=== PATIENT | male | born 1940 | race Caucasian/White ===

== ENCOUNTER 2019-10-20 17:33 | Inpatient (IN) ==
[2019-10-20] MEDS ORDERED: NS 1,000 ML IV ONE ×2 (18:05→19:18)
--- NOTE | 2019-10-20 18:16 | EKG Report ---
Test Performed on : 10/20/2019 6:05:35 PM Test Reason : PROTOCOL Blood Pressure : / mmHG Vent. Rate : 072 BPM Atrial Rate : 072 BPM P-R Int : 168 ms QRS Dur : 136 ms QT Int : 452 ms P-R-T Axes : 038 077 029 degrees QTc Int : 494 ms Normal sinus rhythm. Right bundle branch block Abnormal ECG When compared with ECG of 08-JUN-2009 12:31, Right bundle branch block is now present Unconfirmed Result
[2019-10-20 18:22] LABS: BASO# 0.13 X1000 (0.0-0.2); BASO% 1.7 % (0.0-0.8); EOS# 0.22 X1000 (0.0-0.7); EOS% 2.8 % (0.0-10.0); HEMATOCRIT 23.5 % (42.0-52.0); HEMOGLOBIN 6.6 g/dL (14.0-18.0); IMM GRAN# 0.01 X1000 (0.0-0.04); IMM GRAN% 0.1 % (0.0-0.5); LYMPH# 1.18 X1000 (1.2-3.4); LYMPH% 15.3 % (20.5-51.1); MCH 21.5 PG (27-31); MCHC 28.1 g/dL (33-37); MCV 76.5 FL (81-99); MONO# 0.77 X1000 (0.11-0.59); MPV 12.1 FL (7.4-10.4); NEUT# 5.42 X1000 (1.4-6.5); NEUT% 70.1 % (42.2-75.2); PLT 253 X1000 (130-400); RBC 3.07 XMIL (4.7-6.1); RDW 19.8 % (11.5-14.5); WBC 7.73 X1000 (4.8-10.8)
[2019-10-20 18:28] LABS: INR 1.06; PROTIME 14.4 Seconds (11.0-16.0)
[2019-10-20 18:30] LABS: OCCULT BLOOD 1 POSITIVE (NEGATIVE)
--- NOTE | 2019-10-20 18:33 | PROVIDER DOCUMENTATION ---
HPI-General Adult - General Chief Complaint: Abnormal Lab[s] Stated Complaint: ABNORMAL LABS Time Seen by Provider: 10/20/19 17:53 Source: patient Allergies/Adverse Reactions: Patient Allergies Allergy/AdvReac Type Severity Reaction Status Date / Time No Known Allergies Allergy Verified 04/23/13 12:23 Home Medications: Home Medication List Medication Instructions Recorded Confirmed Last Taken Type ATORVAstatin [Lipitor] 10 mg PO HS 04/23/13 04/23/13 04/29/13 04:30 History Atenolol 50 mg PO DAILY 04/23/13 04/23/13 04/29/13 04:30 History Hydrocodone Bit/Acetaminophen 1 each PO BID 04/23/13 04/23/13 04/27/13 History [Hydrocodon-Acetaminoph 7.5-500] Indapamide 1.25 mg PO DAILY 04/23/13 04/23/13 04/29/13 04:30 History Acetaminophen [Tylenol] 650 mg PO Q4-6H PRN PRN #0 tablet 04/30/13 Unknown Rx Ciprofloxacin HCl [Cipro] 500 mg PO BID #6 tablet 04/30/13 Unknown Rx Docusate Sodium [Colace] 100 mg PO BID #0 capsule 04/30/13 Unknown Rx Hydrocodone/Acetaminophen [Lorcet 1 each PO Q4H PRN PRN #15 tablet 04/30/13 Unknown Rx 10-650 Tablet] Oxybutynin [Ditropan] 5 mg PO TID PRN PRN #30 tablet 04/30/13 Unknown Rx - History of Present Illness -Gen Adult Nature of Presenting Problems: 78 yom presents at the direction of his PCP for low blood counts, he reports dark stool one month ago that resolved with medications from pcp. Does report generalized weakness but denies SOB, CP, Fever, Chills, N/V/D, Abdominal pain. he is hypotensive in traige Location of Pain/Injury: reports: none Pain Radiation: reports: no radiation Quality of Pain: reports: none Severity: reports: moderate Onset/Duration: reports: unsure Timing: reports: still present Context/Activities at Onset: reports: none Modifying Factors: improves with: nothing Associated Symptoms: reports: weakness Similar Symptoms Previously?: No Recently seen or treated by another doctor?: No Review of Systems - Adult - REVIEW OF SYSTEMS - ADULT Constitutional: reports: no symptoms reported. denies: see HPI, chills, fever, fatique, night sweats, weight gain, weight loss, other Eyes: reports: no symptoms reported. denies: see HPI, discharge, dry eyes, decreased vision, blurred vision, double vision, eye pain, redness, other Ears, Nose, Mouth & Throat: reports: no symptoms reported. denies: see HPI, ear discharge, ear pain, hearing loss, tinnitus, epistaxis, sinus problem, nose pain, loose teeth, mouth/dental pain, mouth swelling, hoarseness, throat pain, throat swelling, other Cardiovascular: reports: no symptoms reported. denies: see HPI, chest pain, edema, heart murmur, irregular heart rate, orthopnea, palpitations, poor circulation, PND, syncope, other Respiratory: reports: no symptoms reported. denies: see HPI, chronic cough, cough, dyspnea on exertion, excessive sputum production, hemoptysis, pleurisy, shortness of breath, wheezing, other Gastrointestinal: reports: see HPI. denies: no symptoms reported, abdominal pain, hematemesis, constipation, diarrhea, difficulty swallowing, frequent heartburn, nausea, poor appetite, rectal bleeding, vomiting, other Genitourinary: reports: no symptoms reported. denies: see HPI, dysuria, discharge, frequency, flank pain, frequent UTI's, hematuria, hesitency, incontinence, urinary retention, urgency, other Musculoskeletal: reports: muscle weakness (generalized). denies: no symptoms reported, see HPI, bone pain, back pain, frequent leg cramps, joint pain, joint swelling, muscle aches, neck pain, other Integumentary: reports: no symptoms reported. denies: see HPI, hives, hair loss, itching, mole changes, nail changes, rash, skin sores/ulcer, skin thickening, other Neurological: reports: no symptoms reported. denies: see HPI, ataxia, dizziness/vertigo, headache/migraines, loss of balance, numbness, paresthesia, seizure, slurred speech, syncope, tremors, other Psychiatric: reports: no symptoms reported. denies: see HPI, anxiety, anti- depressant use, alcohol/drug dependence, depression, emotional problems, insomnia, panic attacks, suicidal thoughts, other Endocrine: reports: no symptoms reported. denies: see HPI, change in skin pigment, excessive sweating, goiter, cold intolerance, heat intolerance, increased hunger, increased thirst, polyuria, other Hematologic/Lymphatic: reports: low blood count. denies: no symptoms reported, see HPI, blood clots, easy bruising, lymphedema, prolonged bleeding, swollen lymph nodes, transfusions, other Allergic/Immunologic: reports: no symptoms reported. denies: see HPI, allergic reactions, allergic rhinitis, asthma, eczema, food allergy, frequent infections, hay fever, hives, positive PPD, urticaria, other Past History - Adult - PAST MEDICAL HISTORY-ADULT Review of Records: reports: Nursing Assessment Review, Social history reviewed & non-contributory. Physical Exam-General - PHYSICAL EXAM-ADULT Initial Vital Signs Reviewed: Yes - CONSTITUTIONAL General Appearance: alert, no apparent distress - EYES Eyes: PERRL/EOMI, pink conjunctivae - HEAD, EARS, NOSE, MOUTH & THROAT HENMT: normocephalic/atraumatic, moist mucous membranes, normal ENT inspection - NECK Neck: non-tender, full range of motion, supple - RESPIRATORY Respiratory: chest non-tender, lungs clear, normal breath sounds, no pleuratic chest pain, no respiratory distress, no accessory muscle use - CARDIOVASCULAR Cardiovascular: normal peripheral pulses, regular rate, rhythm, no gallop, no JVD, no murmur, other (RLE edema pt reports is chronic) - GASTROINTESTINAL (ABDOMEN) Abdominal Exam: normal bowel sounds, non tender, soft - LYMPHATIC Lymphatic: no adenopathy - MUSCULOSKELETAL Back Exam: normal inspection, no CVA tenderness, no vertebral tenderness Extremity: normal range of motion, non-tender, normal gait, pedal edema, swelling (RLE - pr reports is chronic). negative: tenderness - SKIN Integumentary: normal color, normal turgor, warm/dry - NEUROLOGIC Neurologic: grossly normal - PSYCHIATRIC Psych/Mental Status: normal mood/affect, oriented x 3 Progress - PLAN OF CARE/RESULTS Progress/Plan/Lab Results: Vital Signs - 8 hr 10/20/19 17:50 10/20/19 18:22 Temperature 98.0 F Pulse Rate 76 77 Respiratory Rate 16 13 Blood Pressure 89/40 114/46 O2 Sat by Pulse Oximetry 96 100 Laboratory Results - last 24 hr 10/20/19 10/20/19 18:00 18:00 WBC 7.73 RBC 3.07 L Hgb 6.6 L Hct 23.5 L MCV 76.5 L MCH 21.5 L MCHC 28.1 L RDW Std Deviation 19.8 H Plt Count 253 MPV 12.1 H Immature Gran % (Auto) 0.1 Neut % (Auto) 70.1 Lymph % (Auto) 15.3 L [place] % (Auto) 10.0 H Eos % (Auto) 2.8 Baso % (Auto) 1.7 H Immature Gran # (Auto) 0.01 Neut # (Auto) 5.42 Lymph # (Auto) 1.18 L [place] # (Auto) 0.77 H Eos # (Auto) 0.22 Baso # (Auto) 0.13 PT 14.4 INR 1.06 Orders Category Date Time Status Saline Loc NOW Care 10/20/19 18:04 Active CBC WITH ELECTRONIC DIFF [HEME] Stat Lab 10/20/19 18:00 Completed COMPREHENSIVE METABOLIC PANEL [CHEM] Stat Lab 10/20/19 18:00 Received PROTIME WITH INR [COAG] Stat Lab 10/20/19 18:00 Results PTT [COAG] Stat Lab 10/20/19 18:00 Results Stool [OCCULT BLOOD SCREENING] [STOOL] Stat Lab 10/20/19 18:12 Received TYPE & SCREEN [BBK] Stat Lab 10/20/19 18:00 Received 0.9% Sodium Chloride Inj [Ns] 1,000 ml Med 10/20/19 18:05 Active IV 999 mls/hr GI Bleed (possible) Stat Oth 10/20/19 17:56 Ordered Generalized Adult Illness >60 Stat Oth 10/20/19 17:54 Ordered EKG [EKG] Stat Ther 10/20/19 17:54 Draft Result Diagrams: 10/20/19 18:00 10/20/19 18:00 - CONSULTS/PCP/HOSPITALIST Notification #1 *Consult/PCP/Hospitalist*: Dr. bauman Time Discussed: 19:19 Consult Disposition: Admit Departure - Departure Date of Disposition Decision: 10/20/19 Time of Disposition Decision: 19:19 DIAGNOSIS: GI bleed Disposition: ADMITTED INPATIENT 09 Certified Medical Emergency: Emergent Condition: Stable Referrals and Follow-Ups: Fouzia Pozo MD [Primary Care Provider] - - Critical Care Note This patient required my direct & personal management of CC.: No Attestation - Physician/ AGUSTIN Attestation Patient care was provided by Advanced Practice Provider:: Yes Advanced Practice Provider:: Tasia Rodriguez Advanced Practice Provider documentation review:: The Mid-level provider documentation, treatment plan and medical decision making was reviewed by the physician who agrees with all treatment and medical decision making by the MLP. The physician spent face to face time with patient:: No Advanced Practice Provider documentation review:: Supervising physician onsite and consulted in the evaluation and care of this patient. The physician did not have a face to face encounter with the patient.
[2019-10-20 18:41] LABS: ALBUMIN 4.2 g/dL (3.5-5.0); CALCIUM 9.3 mg/dL (8.8-10.2); CREATININE 1.5 mg/dL (0.7-1.2); TOTAL BILIRUBIN 0.4 mg/dL (0.20-1.00); TOTAL PROTEIN 7.7 g/dL (6.3-8.3)
[2019-10-20] MEDS ORDERED: PROTONIX IV ONE (19:11)
[2019-10-20] MEDS ORDERED: SODIUM CHLORIDE 0.9% INJ ONE (19:11)
[2019-10-20] MEDS ORDERED: ZOFRAN IV PRN (21:00)
[2019-10-20] MEDS ORDERED: DITROPAN PO PRN (23:44)
[2019-10-21] MEDS: LYRICA PO SCH ×2 (00:40→22:18)
[2019-10-21] MEDS: LIPITOR PO SCH ×2 (00:40→22:18)
[2019-10-21 00:41] LABS: BASO# 0.07 X1000 (0.0-0.2); BASO% 1.1 % (0.0-0.8); EOS# 0.18 X1000 (0.0-0.7); EOS% 2.7 % (0.0-10.0); HEMATOCRIT 23.5 % (42.0-52.0); HEMOGLOBIN 6.9 g/dL (14.0-18.0); LYMPH# 0.82 X1000 (1.2-3.4); LYMPH% 12.4 % (20.5-51.1); MCH 23.1 PG (27-31); MCHC 29.4 g/dL (33-37); MCV 78.6 FL (81-99); MONO# 0.82 X1000 (0.11-0.59); MONO% 12.4 % (1.7-9.3); MPV 12.1 FL (7.4-10.4); NEUT% 71.4 % (42.2-75.2); PLT 193 X1000 (130-400); RBC 2.99 XMIL (4.7-6.1); RDW 19.1 % (11.5-14.5); WBC 6.59 X1000 (4.8-10.8)
[2019-10-21 01:04] LABS: HEMOGLOBIN A1C 5.5 % (4.8-6.0)
--- NOTE | 2019-10-21 06:09 | HISTORY AND PHYSICAL ---
CHIEF COMPLAINT: Abnormal labs. HPI: This is a 78-year-old male who comes in from [place]. He started having dark stools around [place]. He saw his primary care provider who gave him a PPI which he took. The stools changed back to their normal color. He went into this week to get labs drawn for his yearly physical. He was called tonight around dinner time stating that he needed to go to the ER because he was hyper anemic. He does report some generalized weakness but denied any shortness of breath, chest pain, fever or chills, nausea or vomiting, diarrhea or abdominal pain. He was mildly hypotensive in triage. Hemoglobin and hematocrit were 6.6 and 24.5, respectively. He will be admitted to [facility] for further evaluation and treatment as well as GI consultation. PAST MEDICAL HISTORY: Hypertension, hyperlipidemia, prostate cancer status post prostatectomy. PREVIOUS SURGICAL HISTORY: Prostatectomy. He also had radiation. SOCIAL HISTORY: Former smoker. Remote history. No alcohol. No illicit drugs. FAMILY HISTORY: Positive for diabetes mellitus and coronary artery disease. ALLERGIES: NO KNOWN DRUG ALLERGIES. HOME MEDICATIONS: 1. Prilosec 40 mg p.o. daily. 2. Atenolol 50 mg p.o. daily. 3. Atorvastatin 10 mg p.o. at bedtime. 4. Indapamide 1.25 mg p.o. daily. 5. Oxybutynin 5 mg p.o. t.i.d. 6. Pregabalin 100 mg p.o. at bedtime. REVIEW OF SYSTEMS: A 14 point review of systems was conducted with the patient. Pertinent positives listed above in the HPI. All other systems are reviewed and found to be negative. PHYSICAL EXAMINATION: VITAL SIGNS: Temperature 98.2, pulse 73, respirations 19, blood pressure 136/48, oxygen saturation 96% on room air. GENERAL: Pleasant 78-year-old male lying in the medical floor bed. He is accompanied with his . He is alert and oriented x3. He is in no acute distress. HEENT: Head is atraumatic, normocephalic. Pupils are equal, round, react to light. Extraocular eye movements are intact. Sclera is anicteric. Conjunctiva is pale. Oral mucosa is mildly dry. NECK: Supple. No JVD. No thyromegaly. Trachea is midline. No cervical lymphadenopathy. CARDIAC: S1, S2 appreciated. No murmurs, gallops, rubs. LUNGS: Clear to auscultation bilaterally, with no rhonchi, wheezes, rales. Symmetric rise and fall respirations. ABDOMEN: Soft, nondistended, nontender. Bowel sounds present all 4 quadrants, normoactive, no pulsatile mass or organomegaly. EXTREMITIES: No clubbing, cyanosis or edema. 1+ pedal pulses bilaterally. GENITOURINARY: No bladder distention. Patient voids, otherwise deferred. NEUROLOGICAL: Alert and oriented x3. Cranial nerves 2-12 grossly intact. LABORATORY DATA: WBC 7.73, hemoglobin 6.6, hematocrit 23.5, platelet count 253,000. Sodium 144, potassium 4, chloride 103, carbon dioxide 28, BUN 41, creatinine 1.5, glucose 145. Occult stool positive. EKG showed normal sinus rhythm with a right bundle branch block, rate of 72. ASSESSMENT: 1. Upper gastrointestinal bleed. 2. Hypertension. 3. Hyperlipidemia. 4. Anemia secondary to upper gastrointestinal bleed. PLAN: Will admit patient to the medical floor. Will order iron indices, consult GI. Continue his home medications. N.p.o. after midnight. Check hemoglobin A1c. He is mildly hyperglycemic. Trend hemoglobin and hematocrit. Will transfuse 1 unit of packed red blood cells. Further recommendations based on patient's clinical course. Dictated by ARNULFO Murphy for Miguel Ball MD cc: ARNULFO Murphy MD Bhavna Gowda, MD
--- NOTE | 2019-10-21 09:19 | PROGRESS NOTE ---
DATE: 10/21/2019 SUBJECTIVE: Patient reports no more episodes of bleeding, no melena, no hematemesis. OBJECTIVE: Vital signs: Temperature 98.6, heart rate 71, respiratory rate 17 blood pressure 128/52, O2 saturation 97% on room air. General: This is a 78-year-old male, lying in bed, in no acute distress. Cardiovascular: S1, S2 heard. No murmurs, gallops, or rubs. Regular rate and rhythm. Respiratory: Clear bilaterally to auscultation. No work of breathing or using accessory muscles. Abdomen: Soft, mildly distended but nontender to palpation. Bowel sounds present. No organomegaly. Extremities: No clubbing, cyanosis, or edema. Peripheral pulses present in both legs. Neurological: Patient is alert and oriented x3. Moves 4 extremities. LABORATORY DATA: We Do not have labs from today, but from yesterday at 11:45, hemoglobin was 6.9 and apparently 2 units have been transfused today. ASSESSMENT AND PLAN: 1. For gastrointestinal bleeding. Hemoglobin is still pending from this morning. Clinically, is not bleeding any more. We have consulted GI. We will follow recommendations. 2. Hypertension. Blood pressure is under control. I do not think we need to restart any antihypertensive medication. At this point, we will continue to monitor. 3. Hyperlipidemia. We will continue home medications. 4. Anemia of blood loss. Hemoglobin is still pending. We will continue to monitor. cc: Bryce Gordon MD
[2019-10-21] MEDS: TENORMIN PO SCH (09:36)
[2019-10-21] MEDS: SODIUM CHLORIDE 0.9% INJ SCH ×2 (09:36→22:19)
[2019-10-21] MEDS: LOZOL PO SCH (09:36)
[2019-10-21] MEDS: PROTONIX IV SCH ×2 (09:36→22:18)
[2019-10-21 10:22] LABS: BASO# 0.04 X1000 (0.0-0.2); BASO% 0.5 % (0.0-0.8); EOS# 0.17 X1000 (0.0-0.7); EOS% 2.2 % (0.0-10.0); HEMATOCRIT 27.5 % (42.0-52.0); LYMPH# 0.96 X1000 (1.2-3.4); LYMPH% 12.6 % (20.5-51.1); MCH 23.3 PG (27-31); MCHC 29.1 g/dL (33-37); MCV 79.9 FL (81-99); MONO# 0.84 X1000 (0.11-0.59); MPV 11.3 FL (7.4-10.4); NEUT% 73.7 % (42.2-75.2); PLT 179 X1000 (130-400); RBC 3.44 XMIL (4.7-6.1); RDW 18.7 % (11.5-14.5); WBC 7.61 X1000 (4.8-10.8)
[2019-10-21 10:38] LABS: ALB/GLOB RATIO 1.4; ALBUMIN 3.7 g/dL (3.5-5.0); CALCIUM 8.4 mg/dL (8.8-10.2); CREATININE 1.4 mg/dL (0.7-1.2); POTASSIUM 4.7 mmol/L (3.5-5.1); TOTAL BILIRUBIN 0.52 mg/dL (0.20-1.00); TOTAL PROTEIN 6.4 g/dL (6.3-8.3)
[2019-10-21 11:02] LABS: FERRITIN 14 ng/mL (30-400)
[2019-10-21 12:56] LABS: BASO# 0.07 X1000 (0.0-0.2); EOS# 0.18 X1000 (0.0-0.7); EOS% 2.5 % (0.0-10.0); HEMATOCRIT 27.6 % (42.0-52.0); HEMOGLOBIN 8.1 g/dL (14.0-18.0); IMM GRAN# 0.04 X1000 (0.0-0.04); IMM GRAN% 0.5 % (0.0-0.5); LYMPH# 0.78 X1000 (1.2-3.4); LYMPH% 10.7 % (20.5-51.1); MCH 23.4 PG (27-31); MCHC 29.3 g/dL (33-37); MCV 79.8 FL (81-99); MONO# 1.05 X1000 (0.11-0.59); MONO% 14.4 % (1.7-9.3); MPV 11.6 FL (7.4-10.4); NEUT# 5.18 X1000 (1.4-6.5); NEUT% 70.9 % (42.2-75.2); PLT 182 X1000 (130-400); RBC 3.46 XMIL (4.7-6.1); RDW 18.7 % (11.5-14.5)
[2019-10-21 13:09] LABS: IRON SATURATION 5 %; TIBC 368 ug/dL; TOTAL IRON 20 ug/dL (53-167); UNBOUND IRON 348 ug/dL (112-346)
[2019-10-21 18:34] LABS: BASO# 0.06 X1000 (0.0-0.2); BASO% 0.9 % (0.0-0.8); EOS# 0.16 X1000 (0.0-0.7); EOS% 2.3 % (0.0-10.0); HEMATOCRIT 28.3 % (42.0-52.0); HEMOGLOBIN 8.3 g/dL (14.0-18.0); LYMPH# 0.84 X1000 (1.2-3.4); LYMPH% 11.9 % (20.5-51.1); MCH 23.3 PG (27-31); MCHC 29.3 g/dL (33-37); MCV 79.5 FL (81-99); MONO# 1.03 X1000 (0.11-0.59); MONO% 14.6 % (1.7-9.3); MPV 12.5 FL (7.4-10.4); NEUT# 4.96 X1000 (1.4-6.5); NEUT% 70.3 % (42.2-75.2); PLT 198 X1000 (130-400); RBC 3.56 XMIL (4.7-6.1); RDW 18.8 % (11.5-14.5); WBC 7.05 X1000 (4.8-10.8)
--- NOTE | 2019-10-21 20:18 | GASTROENTEROLOGY CONSULTATION ---
DATE: 10/21/2019 REASON FOR CONSULT: GI bleed. HISTORY OF PRESENT ILLNESS: Mr. Guevara is a 78-year-old male who went to [facility] yesterday with complaints of anemia. The patient mentioned that Saturday when he went to his primary care provider they did the lab and found out that his hemoglobin was low. The patient mentioned that this has been going on, around he started noticing that he had dark, tarry stools. He has denied any abdominal pain, nausea, or vomiting but he did mention that during time he was having chills and shortness of breath. The patient was started on PPIs by his primary care provider, and he said that his stools started to be normal, but on Saturday, his labs showed that his hemoglobin was low and they had asked him to come to the ER. The patient went to [facility] and then was sent back to [facility]. At present patient has denied any nausea, vomiting, abdominal pain, or shortness of breath, fever or chills. The patient's hemoglobin on admission was 6.6 and hematocrit was 23.5. So far, patient has received 2 units of blood and his hemoglobin today is 8.3 and hematocrit is 28.3. Patient did mention that at one time he used to take goody powders, but has not had it recently. He reports having multiple colonoscopies in the past. PAST MEDICAL HISTORY: Hypertension, hyperlipidemia, neuropathy, and prostate cancer status post prostatectomy. PREVIOUS SURGICAL HISTORY: Hernia repair, neck surgery and a prostatectomy with radiation. ALLERGIES: No known drug allergies. SOCIAL HISTORY: The patient is , has 2 kids. He used to smoke in the past, but he does chew tobacco and has alcohol occasionally. FAMILY HISTORY: Positive for heart problems and diabetes. HOME MEDICATIONS: Atorvastatin 10 mg p.o. at bedtime, indapamide 1.25 mg daily, atenolol 50 mg p.o. daily. Ditropan 5 mg p.o. 3 times a day as needed. Prilosec 40 mg p.o. daily. Lyrica 100 mg p.o. at bedtime. REVIEW OF SYSTEMS: As per HPI. Otherwise, 12 point review of system is negative. PHYSICAL EXAMINATION: Vital Signs: Temperature 98.1 degrees, pulse 65, respirations 16, blood pressure 131/41, oxygen saturation 100% on room air. His BMI is 24.7 kg/m2. General: He is alert, oriented x3, in no acute distress. HEENT: Pale conjunctivae. No icterus. PERRL. Neck: Supple. Lungs: Clear to auscultation. Cardiovascular: Regular rate and rhythm. Abdomen: Soft, nontender, nondistended. Active bowel sounds heard in all 4 quadrants. Extremities: No clubbing, no cyanosis, no edema. Pedal pulses 2+ present bilaterally. Neurologic: He is alert, oriented x3. Nonfocal. Cranial nerves 2-12 grossly intact. LABORATORY DATA: WBCs 7.05, RBC 3.5, hemoglobin 8.3, hematocrit is 28.3, platelet count is 198,000. Sodium 146, potassium 4.7, chloride 109, carbon dioxide 25, anion gap 12, BUN 36, creatinine is 1.4, glucose 26, calcium 8.4. Iron 20, TIBC 368, ferritin 14, total bilirubin 0.52, AST 17, ALT 9, alkaline phosphatase 71, albumin is 3.7, folate is 11.5. Stool for occult blood is positive. IMPRESSION AND PLAN: 1. Gastrointestinal bleed. 2. Acute blood loss anemia. 3. Hypertension. 4. H/o prostate cancer s/p prostatectomy. PLAN: Mr. Guevara is a 78-year-old male with a history of prostate cancer status post prostatectomy. GI has been consulted for his GI bleed. We will plan to do an EGD tomorrow to find out the cause of his bleeding. The patient's hemoglobin and hematocrit has trended upwards today. He has received 3 units of blood, his H & H today is 8.3 and 28.3. The patient is currently on PPI 40 mg twice a day. We will continue with that and further plan of care will be based on the EGD findings. We have discussed the risks, benefits, and alternatives of the procedure to the patient. This plan was discussed with Dr. Camargo. Thank you for your consult. Please call us for any further questions or concerns. Dictated by ARNULFO Holliday for Jj Camargo MD Physician Attestation I have seen and examined the patient. I have discussed and reviewed the note by Ania ARREDONDO and agree with findings and plan as documented. In brief, Mr. Guevara is a 78 year old man who presented with occult blood loss anemia. He reports having some melenic stools in Aug, but none since. No abdominal pain, gross hematochezia, N/V, or dysphagia. He is not on blood thinners. He is on PPI BID, trend H/H daily, transfuse for goal hgb 7-8, EGD with Dr. Brewer on . MTDD
--- NOTE | 2019-10-22 09:56 | PROGRESS NOTE ---
DATE: 10/22/2019 SUBJECTIVE: Patient reports no more episodes of melena, no hematemesis. Patient feeling okay. No lightheadedness or dizziness. OBJECTIVE: Vital Signs: Temperature 98.1 degrees, heart rate 71, respiratory 19 blood pressure 143/53, O2 saturation 96% on room air. General: This is a 78-year-old male, lying in bed, in no acute distress. Cardiovascular: S1, S2 heard. No murmurs, gallops, or rubs. Regular rate and rhythm. Respiratory: Clear bilaterally to auscultation. No work of breathing or using accessory muscles. Abdomen: Soft, mildly distended but nontender to palpation. Bowel sounds present. No organomegaly. Extremities: No clubbing, cyanosis, or edema. Peripheral pulses present in both legs. Neurological: Patient is alert and oriented x3. Moves 4 extremities. LABORATORY DATA: Reviewed. ASSESSMENT AND PLAN: 1. Gastrointestinal bleeding. Clinically, the patient is not having more episodes of bleeding. He has been scheduled for esophagogastroduodenoscopy today. We will see what it shows. 2. Hypertension blood pressure is under control. I do not think we need to restart any blood pressure medications. 3. Hyperlipidemia. We will continue home medications. 4. Anemia of blood loss. Hemoglobin is stable, 8.3 and yesterday was 8.1. We will continue to monitor. DISPOSITION: We will see what the EGD shows today. cc: Bryce Gordon MD
[2019-10-22] MEDS: LOZOL PO SCH (10:49)
[2019-10-22] MEDS: PROTONIX IV SCH (10:49)
[2019-10-22] MEDS: TENORMIN PO SCH (10:49)
--- NOTE | 2019-10-22 10:52 | ENDOSCOPY OPERATIVE NOTE ---
[facility] ENDOSCOPY OPERATIVE NOTE , EGD PROCEDURE REPORT EXAM DATE: 10/22/2019 PATIENT NAME: López Guevara MR#: [id number] BIRTHDATE: 1940 ATTENDING: Paresh Brewer MD STATUS: inpatient DOCKING PILOT: Chandni Rosario and Sofia Holt INDICATIONS: The patient is a 78 yr old male here for an EGD due to Anemia, GI Bleed, Melena. PROCEDURE PERFORMED: EGD, diagnostic MEDICATIONS: Per Anesthesia ESTIMATED BLOOD LOSS: None CONSENT: The patient understands the risks and benefits of the procedure and understands that these r isks include, but are not limited to: sedation, allergic reaction, infection, perforation and/or bleeding. Alternative means of evaluation and treatment include, among others: physical exam, x-rays, and/or surgical intervention. The patient elects to proceed with this endoscopic procedure. DESCRIPTION OF PROCEDURE: During pre-op preparation period all mechanical and medical equipment was c hecked for proper function. Hand hygiene and appropriate measures for infection prevention was taken. After the risks, benefits and alternatives of the procedure were thoroughly explained, Informed consent was verified, confirmed and timeout was successfully executed by the treatment team. The patient was anesthetized with topical anesthesia and the [id number] ([id number]) endoscope was introduced through the mouth and advanced to the second portion of the duoden um. Retroflexion was performed in the stomach and revealed a hiatal hernia. The gastroscope was then slowly withdrawn and removed. The patient's toleration of the procedure was good. ESOPHAGUS: Reflux esophagitis was found in the middle third of the esophagus and lower third esophagu s. Esophagitis was LA Class B: One or more mucosal breaks > 5mm, but without continuity across mucosal folds. A large 10 cm mixed sliding and paraesophageal hiatal hernia was noted with [place] lesions. STOMACH: Gastritis (inflammation) was found in the gastric body and gastric antrum. DUODENUM: Moderate duodenal inflammation was found in the duodenal bulb. The duodenal mucosa showed no abnormalities in the 2nd part of the duodenum. ADVERSE EVENTS: There were no complications. IMPRESSIONS: 1. Reflux esophagitis in the middle third of the esophagus and lower third esophagu s 2. 10 cm hiatal hernia 3. Gastritis (inflammation) was found in the gastric body and gastric antrum 4. Duodenal inflammation was found in the duodenal bulb 5. The duodenal mucosa showed no abnormalities in the 2nd part of the duodenum RECOMMENDATIONS: Start PPI BID for 90 days Start carafate 1g every 6 hours for 6 weeks Start iron C BID for 90 days Start MVI Qd for 90 days Avoid NSAIDs Scehdule for UGI series to evalaute gisel Hiatal hernia May need surgery consult for large Hiatal hernia repair REPEAT EXAM: Paresh Brewer MD eSigned: Paresh Brewer MD 10/22/2019 10:51 AM CC: CPT CODES: 94872 Upper gastrointestinal endoscopy including esophagus, stomach, and either the du odenum and/or jejunum as appropriate; diagnostic, with or without collection of specimen(s) by brushing or washing (separate procedure) ICD CODES: 553.3 Diaphragmatic hernia without mention of obstruction or gangrene 530.11 Reflux esophagitis 535.50 Unspecified gastritis and gastroduodenitis (without hemorrhage) 535.60 Duodenitis (without mention of hemorrhage) The ICD and CPT codes recommended by this software are interpretations from the data that the [facility] staff has captured with the software. The verification of the translation of this report to the ICD and CPT co gregoria and modifiers is the sole responsibility of the health care institution and practicing physician where this report was generated. [employer] will not be held responsible for the validity of the ICD and CPT codes i ncluded on this report. [employer] assumes no liability for data contained or not contained herein. CPT is a registered tra demark of [employer]. PATIENT NAME: López Guevara MR#: [id number]
[2019-10-22] MEDS ORDERED: CARAFATE PO SCH (11:15)
--- NOTE | 2019-10-22 13:02 | Diag Imaging Result Doc PS360 ---
EXAM: GI SERIES WITH BA SWALLOW INDICATION: evaluate for paraesophageal hiatal hernia TECHNIQUE: Oral barium contrast was administered under fluoroscopy and spot images were obtained. Note that this study is limited as the patient could not stand and had limited ability to roll. Contrast was administered while the patient was inclined. COMPARISON: None. FINDINGS: A large portion of the stomach including the fundus and part of the gastric body is above the diaphragm. This includes the gastroesophageal junction. It is consistent with a large hiatal hernia rather than a paraesophageal hernia. It can also be seen on a prior CT dated 02/25/2013. The distal esophagus is tortuous due to mass effect from the herniated stomach. There is an irregular filling defect seen at the right lateral wall of the esophagus on early images. However, it appears to clear on the later images and it probably represents a gas bubble. Limited single contrast images of the spinal show no discrete filling defect. The visualized portion of the duodenum is grossly unremarkable. IMPRESSION: Large hiatal hernia as detailed above. Electronically signed by Kevin Abdullahi 10/22/2019 1:00 PM
[2019-10-22 13:13] VITALS: BP 144/52
[2019-10-22] MEDS ORDERED: ICAR-C PO SCH (21:00)
[2019-10-23] MEDS ORDERED: CENTRUM SILVER PO SCH (09:00)
--- NOTE | 2019-10-23 14:34 | DISCHARGE SUMMARY ---
ADMISSION DATE: 10/20/2019 DISCHARGE DATE: 10/22/2019 DISCHARGE DIAGNOSES: 1. Upper gastrointestinal bleed. Resolved. 2. Hypertension. 3. Hyperlipidemia. 4. Anemia of chronic disease. CONSULTATIONS: Dr. Jj Camargo from GI. PROCEDURES: 1. Endoscopy procedure showed reflux esophagitis in the middle third of the esophagus and lower third of esophagus with 10 cm hiatal hernia. Gastritis was found in the gastric body and gastric antrum. Duodenal inflammation. 2. Upper gastrointestinal barium swallow showed a large hiatal hernia. HOSPITAL COURSE: This is a 78-year-old, male, who starting presenting with dark stools around [place]. He was seen by primary care doctor who prescribed a PPI. He went to his doctor to get some labs from his yearly physical, and he was called to go to the hospital because he was anemic. Here, the hemoglobin has been found to be 6.6, so he was transfused 2 units of blood, and he was placed on Protonix 40 mg IV q.12 hours, along with Carafate. The patient was scoped with results as above. Considering that there were no signs of bleeding and the patient was doing fine, we decided to send this patient home. DISCHARGE PHYSICAL EXAMINATION: vital signs: Temperature 98.0 degrees, heart rate 63, respiratory rate 19, blood pressure 144/52, O2 saturation 97% on room air. General: This is a 78- year-old, male, lying in bed in no acute distress. Cardiovascular: S1, S2 heard. No murmurs, gallops, or rubs. Regular rate and rhythm. Respiratory: Clear bilaterally to auscultation. No work of breathing or using accessory muscles. Abdomen: Soft, nontender to palpation. Bowel sounds present. No organomegaly. Extremities: No clubbing, cyanosis, or edema. Peripheral pulses present in both legs. Neurological: Alert and oriented x3. Moves all 4 extremities. DISCHARGE DISPOSITION: Home to self-care. MEDICATIONS: 1. Icar-C one tablet p.o. b.i.d. 2. Pantoprazole 40 mg 1 tablet p.o. daily. 3. Sucralfate 1 g p.o. every 6 hours. 4. Multivitamin 1 tablet p.o. daily. 5. Atorvastatin 10 mg 1 tablet p.o. at bedtime. 6. Indapamide 1.25 mg 1 tablet p.o. daily. TIME DISCHARGING THIS PATIENT: 33 minutes. cc: Bryce Gordon MD
== END 2019-10-22 16:22 | disposition home or self-care (01) | DRG 378 ==
LOC: P.ED 17:33 → 4N 19:49 → SUATTDRO 19:49
PROVIDERS: ATTEND Internal Medicine